=== PATIENT | male | born 1995 | race Caucasian/White ===

== ENCOUNTER 2017-06-24 23:14 | Emergency (ER) | payer BC ==
[~2017-06-24] VITALS: Ht 177.8 cm; Wt 84.0 kg
[2017-06-24 23:18] VITALS: BP 126/79; PULSE 104; TEMP 36.8; O2SAT 98; Ht 177.8 cm; Wt 84.0 kg
--- NOTE | 2017-06-24 23:59 | EMERGENCY ROOM VISIT NOTE ---
History Report prepared by Eze: Elvira Alarcon Under the Supervision of: Dr. Jeremy Alvarez M.D. First contact with patient: 23:51 Chief Complaint: KNEEPAIN Stated Complaint: RT KNEE PAIN History of Present Illness The patient is a 21 year old male who presents to the Emergency Room with complaints of sudden right knee pain tonight. He rates his pain at a 7/10. The patient states that he was playing basketball, went to do a lay up, and landed wrong. He denies having foot and ankle pain, but states that he has broken his right ankle before. The patient denies abdominal and back pain. He denies being on blood thinners, but states that he takes anti-depressants. Source of History: patient Onset: tonight Position: knee (right) Symptom Intensity: rated at a 7/10 Timing: other (sudden ) Associated Symptoms: No abdominal pain, No back pain Review of Systems See HPI for pertinent positives & negatives. A total of 6 systems reviewed and were otherwise negative. Past Medical & Surgical Medical Problems: (1) No active medical problems Family History No pertinent family history stated. Social History Smoking Status: Never Smoker Housing Status: lives with roommate Occupation Status: [employer] student Allergies Coded Allergies: No Known Allergies (Unverified , 06/24/17) Physical Exam Vital Signs Date Time Temp Pulse Resp B/P (MAP) Pulse Ox O2 Delivery O2 Flow Rate FiO2 06/24/17 23:18 36.8 104 18 126/79 98 Room Air Physical Exam GENERAL: Patient is well appearing and in no acute distress. HEENT: No acute trauma, normocephalic atraumatic, mucous membranes moist, no nasal congestion, no scleral icterus. NECK: No stridor, no adenopathy, no meningismus, trachea is midline. EXTREMITIES:Knee exam: Stable knee, moderate pain with range of motion. Tenderness to palpation of right LCL and pain laterally with valgus testing. NEUROLOGIC: Alert and oriented, no acute motor or sensory deficits, no focal weakness, cranial nerves grossly intact. SKIN: No rash, no jaundice, no diaphoresis. Medical Decision & Procedures ER Provider Diagnostic Interpretation: X-ray 2 view knee: No fracture. No dislocation. Lateral effusion. ED Course 2352: The patient was evaluated in room C8. A complete history and physical exam was performed. 0030: I updated the patient on his results. 0040: Reevaluated the patient. Discussed results and discharge instructions: He verbalized understanding and agreement. The patient is ready for discharge. Medical Decision Differentials include: fracture, dislocation, and ligamentous injury. 21 yr old male arrives with right knee pain s/p twist injury playing basketball. No ankle/hip injury. TTP laterally though knee currently is stable by exam. Suspect sprain or possibly lateral meniscus injury. Avoid immobilization given stable knee currently. Crutches. RICE. Standard instructions reviewed with patient/friends. Follow up with S. Medication Reconcilliation Current Medication List: was personally reviewed by me Blood Pressure Screening Patient's blood pressure: Normal blood pressure Impression Primary Impression: Right knee sprain Scribe Attestation The scribe's documentation has been prepared under my direction and personally reviewed by me in its entirety. I confirm that the note above accurately reflects all work, treatment, procedures, and medical decision making performed by me. Departure Information Dispostion Home / Self-Care Referrals [facility] Forms HOME CARE DOCUMENTATION FORM, IMPORTANT VISIT INFORMATION Patient Instructions ED Sprain Knee, My [facility]
--- NOTE | 2017-06-25 07:41 | DIAGNOSTIC IMAGING REPORT ---
R KNEE 1 OR 2 VIEWS ROUTINE HISTORY: 21 years-old Male lateral right knee pain s/p twist injury acute right knee pain status post twisting injury COMPARISON: None available TECHNIQUE: 3 views of the right knee FINDINGS: No acute fracture, dislocation or significant degenerative changes. Small joint effusion. IMPRESSION: Small joint effusion without acute bony abnormality. The above report was generated using voice recognition software. It may contain grammatical, syntax or spelling errors. Electronically signed by: Zeeshan Patel M.D. 06/25/2017 7:39 AM Dictated Date/Time: 06/25/2017 7:36 AM
== END 2017-06-25 01:01 | disposition home or self-care (01) ==
LOC: C.EDB 23:15 → C.EDC 06-25 01:01
DX: S83.91XA Sprain of unspecified site of right knee, initial encounter (principal); X50.1XXA Overexertion from prolonged static or awkward postures, initial encounter; Y93.67 Activity, basketball; Y92.310 Basketball court as the place of occurrence of the external cause